=== PATIENT | female | born 1985 | race African-American/Black ===

== ENCOUNTER 2017-01-28 18:53 | Emergency (ER) | payer MEDICAID ==
[~2017-01-28] VITALS: Ht 167.6 cm; Wt 74.8 kg
[2017-01-28 21:55] VITALS: BP 138/99
== END 2017-01-28 22:06 | disposition home or self-care (01) ==
LOC: ER 19:03
DX: J11.1 Influenza due to unidentified influenza virus with other respiratory manifestations (principal); K21.9 Gastro-esophageal reflux disease without esophagitis

== ENCOUNTER 2018-02-08 10:40 | Emergency (ER) | payer MEDICAID ==
[~2018-02-08] VITALS: Ht 167.6 cm; Wt 74.8 kg
[2018-02-08] MEDS ORDERED: SODIUM CHLORIDE 0.9% 500 ML IV ONE (11:07)
[2018-02-08 11:12] LABS: Urine WBC None Seen /hpf (0 - 5)
[2018-02-08 11:31] LABS: Urine Amorphous Crystal FEW /hpf (None Seen); Urine Bacteria NONE SEEN /hpf (None Seen); Urine Blood 3+ /uL (Negative); Urine Specific Gravity 1.001 (1.001-1.035)
[2018-02-08 11:46] LABS: Basophils # (auto) 0.1 uL; Eosinophils # (auto) 0.2 uL; Eosinophils % (auto) 3.5 % (0.0-7.0); Hematocrit 43.8 % (36.0-46.0); Lymphocytes # (auto) 2.3 uL; Lymphocytes % (auto) 41.1 % (10.0-50.0); Mean Corpuscular Hemoglobin 30.9 pg (28.0-32.0); Mean Corpuscular Hgb Conc. 34.2 g/dL (32.0-36.0); Mean Corpuscular Volume 90.5 fL (80.0-100.0); Monocytes # (auto) 0.2 uL; Monocytes % (auto) 3.9 % (0.0-12.0); Neutrophils # (auto) 2.8 uL; Neutrophils % (auto) 50.5 % (37.0-80.0); Platelet Count (auto) 230 10^3/uL (140-450); Red Blood Cells 4.84 10^6/uL (4.0-5.20); Red Cell Distribution Width 12.1 % (11.8-14.3); White Blood Cell 5.5 10^3/uL (4.4-10.8)
[2018-02-08 11:58] LABS: Albumin 4.2 g/dL (3.4-5.0); Calcium 9.2 mg/dL (8.5-10.1); Potassium 3.5 mmol/L (3.5-5.1)
[2018-02-08 12:04] LABS: BUN/Creatinine Ratio 6.6; Bilirubin, Total 0.7 mg/dL (0.2-1.0); Total Protein 8.1 g/dL (6.4-8.2)
[2018-02-08 13:39] VITALS: BP 130/65
== END 2018-02-08 14:15 | disposition home or self-care (01) ==
LOC: ER 10:40
DX: N93.8 Other specified abnormal uterine and vaginal bleeding (principal); H53.8 Other visual disturbances; R42 Dizziness and giddiness; R06.02 Shortness of breath; K21.9 Gastro-esophageal reflux disease without esophagitis; Z91.013 Allergy to seafood; Z91.018 Allergy to other foods
CPT/HCPCS: 36415; 76830; 76856; 80053; 81001; 84702; 85025; 94761; 96360; 96361; 99285; J7040

== ENCOUNTER 2024-04-18 00:28 | Emergency (ER) | payer MEDICAID ==
[~2024-04-18] VITALS: Ht 167.6 cm; Wt 84.9 kg
[2024-04-18 02:11] VITALS: BP 118/71; PULSE 71; RESP 18; TEMP 98.3; O2SAT 98
[2024-04-18] MEDS ORDERED: AUG875T PO (02:15)
--- NOTE | 2024-04-18 02:15 | ED.PDOC ---
Eye-HPI HPI Comments This is a 38-year-old female patient presents ED chief complaint throat pain. Patient reports related symptoms of bilateral ear pain left eye redness and difficulty swallowing it is the pain. States was recently at an ENT appointment this past Monday states since has been sick. Denies difficulty breathing, chest pain, shortness of breath, vomiting, diarrhea or recent ill contacts. 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 History Family History Family History: No family hx of Cancer Social History Smoker: Non-Smoker Alcohol: Occasionally Drugs: Denies Drug Use Lives In: Home Constitutional: reports: fever; denies: chills, diaphoresis, fatigue, malaise, sweats, weakness, others EENTM: reports: eye redness, throat pain, throat swelling; denies: blurred vision, double vision, ear bleeding, ear discharge, ear drainage, ear pain, ear ringing, eye pain, hearing loss, mouth pain, mouth swelling, nasal discharge, nose bleeding, nose congestion, nose pain, photophobia, tearing, voice changes, others Respiratory: denies: cough, hemoptysis, orthopnea, SOB at rest, shortness of breath, SOB with excertion, stridor, wheezing, others Cardiovascular: denies: chest pain, dizzy spells, diaphoresis, Dyspnea on e xertion, edema, irregular heart beat, left arm pain, lightheadedness, palpitations, PND, syncope, others Gastrointestinal: denies: abdomen distended, abdominal pain, blood streaked bowels, constipated, diarrhea, dysphagia, difficulty swallowing, hematemesis, melena, nausea, poor appetite, poor fluid intake, rectal bleeding, rectal pain, vomiting, others Genitourinary: denies: abnormal vagina bleeding, burning, dyspareunia, dysuria, flank pain, frequency, hematuria, incontinence, pain, , vagina discharge, urgency, others Neurological: denies: dizziness, fainting, headache, left sided numbness, left sided weakness, numbness, paresthesia, pre-existing deficit, right sided numbness, right sided weakness, seizure, speech problems, tingling, tremors, weakness, others Musculoskeletal: denies: back pain, gout, joint pain, joint swelling, muscle pain, muscle stiffness, neck pain, others Integumetry: denies: bruises, change in color, change in hair/nails, dryness, laceration, lesions, lumps, rash, wounds, others Allergic/Immunocompromised: denies: Difficulty Healing, Frequent Infections, Hives, Itching, others Hematologic/Lymphatic: denies: anemia, blood clots, easy bleeding, easy bruising, swollen glands, others Endocrine: denies: excessive hunger, excessive sweating, excessive thirst, excessive urination, flushing, intolerance to cold, intolerance to heat, unexplained weight gain, unexplained weight loss, others Psychiatric: denies: anxiety, bipolar disorder, depression, hopeless, panic disorder, schizophrenia, sleepless, suicidal, others Physical Exam General Appearance: No Apparent Distress, Normal HEENT: Pharyngeal Erythema, TMs Normal Neck: Full Range of Motion, Non-Tender Respiratory: Lungs Clear, No Respiratory Distress, Normal Breath Sounds Cardiovascular: No Edema, No JVD, No Murmur, No Gallop, Normal Peripheral Puls es, Regular Rate/Rhythm Breast Exam: Deferred Gastrointestinal: No Organomegaly, Non Tender, No Pulsatile Mass, Normal Bowel Sounds, Soft Genitalia: Deferred Pelvic: Deferred Rectal: Deferred Extremities: Normal capillary refill, Normal inspection, Normal range of motion, Non-tender, No pedal edema Musculoskeletal : Apperance: Normal Neurologic: Alert, 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 Was a procedure done?: No EENT DIFF Eye: N/A Ear: Cerumen Impaction, Foreign Body, Otitis Externa, Otitis Media, Perforation Sore Throat: Peritonsillar Abscess, Peritonsillar Cellulitis, Streptococcal, Viral Pharyngitis X-Ray, Labs, Meds, VS Vital Signs Date Time Temp Pulse Resp B/P (MAP) Pulse Ox O2 Delivery O2 Flow Rate FiO2 04/18/24 02:11 71 18 98 Room Air 04/18/24 02:11 98.3 71 18 118/71 (87) 98 98.3 04/18/24 00:55 98.3 78 18 128/76 (93) 99 Current Medications Medications (Trade) Dose Ordered Sig/Juan M Route Start Time Stop Time Status Last Admin Acetaminophen/ Hydrocodone Bitart ([place] 5/325MG Tab) 1 tab ONCE ONCE PO 04/18/24 02:15 04/18/24 02:16 DC 04/18/24 02:16 X-Ray, Labs, Meds, VS Comment Likely bacterial we will start trial of Augmentin. Patient allergic to dexamethasone requesting something for the pain [place] 5 mg p.o. given. Advised to rest increase p.o. fluids with electrolytes. Follow up with your PCP within 2-3 days as necessary. [id number] Tylenol or Motrin as needed for pain or fever per labeled dosing instructions. We discussed ER return precautions patient indicated understanding and agrees with discharge care plan. Time of 1ST Reevaluation: 02:13 Reevaluation 1ST: Improved Patient Education/Counseling: Diagnosis, Treatment, Prognosis, Need For Follow Up Family Education/Counseling: Diagnosis, Treatment, Prognosis, Need For Follow Up Departure 1 Departure Time of Disposition: 02:13 Impression: Primary Impression: Respiratory infection, upper Qualified Codes: J06.9 - Acute upper respiratory infection, unspecified Disposition: 01 HOME / SELF CARE / HOMELESS Condition: Stable e-Prescriptions Amoxicillin & Pot Clavulanate (AUGMENTIN TABLET) 875 Mg Tb 1 TAB PO BID for 7 Days, #14 TAB Prov: VIKI RIVERA 04/18/24 Discharged With: Significant Other Critical Care Note Critical Care Time?: No Stability Stability form required: No VIKI RIVERA Apr 18, 2024 02:15
[2024-04-18] MEDS: HYDROcodone-ACET 5/325MG TAB PO ONE (02:16)
== END 2024-04-18 02:22 | disposition home or self-care (01) ==
LOC: ER 00:28
DX: J06.9 Acute upper respiratory infection, unspecified (principal); K21.9 Gastro-esophageal reflux disease without esophagitis; H92.03 Otalgia, bilateral; Z98.890 Other specified postprocedural states; Z79.899 Other long term (current) drug therapy; Z91.013 Allergy to seafood; Z91.018 Allergy to other foods

== ENCOUNTER 2025-03-27 14:27 | Emergency (ER) | payer MEDICAID ==
[~2025-03-27] VITALS: Ht 167.6 cm; Wt 74.0 kg
--- NOTE | 2025-03-27 15:03 | ED.PDOC ---
General HPI Comments 39 y/o F, presents to the ED for CC of pelvic pain. Patient states, she has been experiencing symptoms of pelvic pain [id number] with associated irregular menstrual cycles x3-4 months. Patient relays, to have FHx of cervical cancer and expresses concern over being un-screened. Patient further relays, symptoms of unexplained weight loss. Patient denies nausea, vomiting, dizziness, fatigue, or weakness. No other symptoms or modifying factors are present at this time. 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 DOUGHNUT MACHINE OPERATOR HELPER History Family History Family History: No family hx of Cancer Social History Smoker: Non-Smoker Alcohol: Occasionally Drugs: Denies Drug Use Lives In: Home Constitutional: denies: chills, diaphoresis, fatigue, fever, malaise, sweats, weakness, others EENTM: denies: blurred vision, double vision, ear bleeding, ear discharge, ear drainage, ear pain, ear ringing, eye pain, eye redness, hearing loss, mouth pain, mouth swelling, nasal discharge, nose bleeding, nose congestion, nose pain, photophobia, tearing, throat pain, throat swelling, voice changes, others Respiratory: denies: cough, hemoptysis, orthopnea, SOB at rest, shortness of breath, SOB with excertion, stridor, wheezing, others Cardiovascular: denies: chest pain, dizzy spells, diaphoresis, Dyspnea on exertion, edema, irregular heart beat, left arm pain, lightheadedness, palpi tations, PND, syncope, others Gastrointestinal: denies: abdomen distended, abdominal pain, blood streaked bowels, constipated, diarrhea, dysphagia, difficulty swallowing, hematemesis, melena, nausea, poor appetite, poor fluid intake, rectal bleeding, rectal pain, vomiting, others Genitourinary: reports: others (pelvic pain); denies: abnormal vagina bleeding, burning, dyspareunia, dysuria, flank pain, frequency, hematuria, incontinence, pain, , vagina discharge, urgency Neurological: denies: dizziness, fainting, headache, left sided numbness, left sided weakness, numbness, paresthesia, pre-existing deficit, right sided numbness, right sided weakness, seizure, speech problems, tingling, tremors, weakness, others Musculoskeletal: denies: back pain, gout, joint pain, joint swelling, muscle pain, muscle stiffness, neck pain, others Integumetry: denies: bruises, change in color, change in hair/nails, dryness, laceration, lesions, lumps, rash, wounds, others Allergic/Immunocompromised: denies: Difficulty Healing, Frequent Infections, Hives, Itching, others Hematologic/Lymphatic: denies: anemia, blood clots, easy bleeding, easy bruising, swollen glands, others Endocrine: denies: excessive hunger, excessive sweating, excessive thirst, excessive urination, flushing, intolerance to cold, intolerance to heat, unexplained weight gain, unexplained weight loss, others Psychiatric: denies: anxiety, bipolar disorder, depression, hopeless, panic disorder, schizophrenia, sleepless, suicidal, others All Other Systems: Reviewed and Negative Physical Exam General Appearance: No Apparent Distress, Normal HEENT: Normal ENT Inspection, Pharynx Normal Neck: Full Range of Motion, Non-Tender, Normal, Normal Inspection Respiratory: Chest Non-Tender, Lungs Clear, No Accessory Muscle Use, No Respiratory Distress, Normal Breath Sounds Cardiovascular: No Edema, No Murmur, No Gallop, Normal Peripheral Pulses, Regular Rate/Rhythm Breast Exam: Deferred Gastrointestinal: No Organomegaly, Non Tender, No Pulsatile Mass, Normal Bowel Sounds, Soft Genitalia: Deferred Pelvic: Deferred Rectal: Deferred Extremities: No calf tenderness, Normal capillary refill, Normal inspection, Normal range of motion, Non-tender, No pedal edema Musculoskeletal : Apperance: Normal Neurologic: Alert, 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 Was a procedure done?: No Differential Diagnosis Kidney stone (Female): N/A Kidney stone (Male): N/A Urinary Problem (Female): PID, UTI, Vaginitis X-Ray, Labs, Meds, VS Vital Signs Date Time Temp Pulse Resp B/P (MAP) Pulse Ox O2 Delivery O2 Flow Rate FiO2 03/27/25 14:28 98.2 76 16 145/97 99 98.2 Lab Test 03/27/25 15:01 03/27/25 14:43 Range/Units White Blood Count 6.3 4.4-10.8 10^3/uL Red Blood Count 4.50 4.0-5.20 10^6/uL Hemoglobin 12.9 12.2-16.2 g/dL Hematocrit 39.4 36.0-46.0 % Mean Corpuscular Volume 87.5 80.0-100.0 fL Mean Corpuscular Hemoglobin 28.8 28.0-32.0 pg Mean Corpuscular Hemoglobin Concent 32.9 32.0-36.0 g/dL Red Cell Distribution Width 16.6 H 11.8-14.3 % Platelet Count 310 140-450 10^3/uL Mean Platelet Volume 8.0 6.9-10.8 fL Neutrophils (%) (Auto) 54.5 37.0-80.0 % Lymphocytes (%) (Auto) 37.1 10.0-50.0 % Monocytes (%) (Auto) 6.1 0.0-12.0 % Eosinophils (%) (Auto) 1.7 0.0-7.0 % Basophils (%) (Auto) 0.6 0.0-2.0 % Neutrophils # (Auto) 3.4 1.6-8.6 10 ^3/uL Lymphocytes # (Auto) 2.3 0.4-5.4 10 ^3/uL Monocytes # (Auto) 0.4 0-1.3 10 ^3/uL Eosinophils # (Auto) 0.1 0-0.8 10 ^3/uL Basophils # (Auto) 0 0-0.2 10 ^3/uL Nucleated Red Blood Cells 0.1 % Sodium Level 144 136-145 mmol/L Potassium Level 4.6 3.5-5.1 mmol/L Chloride Level 107 98-107 mmol/L Carbon Dioxide Level 28 20-31 mmol/L Anion Gap 9 5-15 Blood Urea Nitrogen 5 L 9-23 mg/dL Creatinine 0.81 0.550-1.02 mg/dL Glomerular Filtration Rate Calc 96 >90 mL/min BUN/Creatinine Ratio 6.2 L 10.0-20.0 Serum Glucose 88 74-106 mg/dL Calcium Level 9.6 8.7-10.4 mg/dL Urine Color Colorless Yellow Urine Clarity Clear Clear Urine pH 7.0 5.0-9.0 Urine Specific Emery 1.002 1.001-1.035 Urine Protein Negative Negative Urine Ketones Negative Negative Urine Blood Negative Negative /uL Urine Nitrite Negative Negative Urine Bilirubin Negative Negative Urine Urobilinogen Normal Negative mg/dL Urine Leukocyte Esterase Negative Negative /uL Urine RBC <1 0 - 4 /hpf Urine Microscopic WBC < 1 0-5 /HPF Urine Squamous Epithelial Cells Few <5 /hpf Urine Bacteria Few H None Seen /hpf Urine Glucose Normal Normal mg/dL Urine Test Negative Negative Time of 1ST Reevaluation: 15:10 Reevaluation 1ST: Unchanged Patient Education/Counseling: Diagnosis, Treatment Family Education/Counseling: No Family Present Additional Information IDEAL BODY WEIGHT: 1st: Refer to [employer] 2nd: 59.3kg x 30mL/kg= 1779mL SEPSIS Sepsis Screen Date sepsis recognized/suspect: Mar 27, 2025 Time Sepsis recognized/suspect: 1431 Recent Procedure: No On Antibiotic Therapy: No Respiratory Rate >20: No Heart Rate >90: No Temp<36 C (96.8 F) or >38.3 C: No SBP <90 or MAP <65 mmHG: No New Acute Mental Status Change: No Is the patient on CPAP, BIPAP,: No Physician Orders Pelvic (03/27/25 17:08) Transvaginal Us Non Ob (03/27/25 ) Vital Signs Date Time Temp Pulse Resp B/P (MAP) Pulse Ox O2 Delivery O2 Flow Rate FiO2 03/27/25 14:28 98.2 76 16 145/97 99 98.2 Laboratory Tests Test 03/27/25 15:01 White Blood Count 6.3 10^3/uL (4.4-10.8) Departure 1 Departure Time of Disposition: 18:34 (Patient presented with abdominal pain that was concerning for possible appendicits, gastritis, cholecystitis, colitis, gastroenteritis, or orther possible surgical emergency. Data: 1. I ordered and reviewed the result of at least 3 labs including a CBC, BMP, and Urinalysis. 2. I independently interpreted the following tests: Ultrasound of the pelvis shows a hemorrhagic cyst .Risk:This patient has a high risk of morbidity due to further diagnostic testing or treatment and may suffer from an acute abdominal process disorder. Fortunately workup reveals a hemorrhagic cyst and patient can be safely discharged to home with outpatient follow up.) Impression: Primary Impression: Hemorrhagic cyst of left ovary Disposition: HOME / SELF CARE / HOMELESS Condition: Stable Additional Instructions: Your workup today shows a hemorrhagic cyst of your left ovary. This is likely what is causing your pain. Your labs are otherwise benign. It is important to follow up with OBGYN next week. You were referred to OB/ Please call for an appointment. For pain you can take the followinam: Ibuprofen 400mg with food Noon: Acetaminophen 1000mg 4pm: Ibuprofen 400mg with food 8pm: Acetaminophen 1000mg You should follow up with your regular doctor within one week to ensure you are doing better. If your symptoms worsen or you have any other concerns then please return to the ER. Discharged With: Self Critical Care Note Critical Care Time?: No Stability Stability form required: No Heart Score Heart Score: Heart Score Response (Comments) Value History N/A 0 EKG N/A 0 Age N/A 0 Risk Factors N/A 0 Troponin N/A 0 Total 0 I personally scribed for AKIL COBB MD ([email or web address]) on 03/27/25 at 15:03. Electronically submitted by Juliane Calle ([email or web address]). I personally scribed for AKIL COBB MD ([email or web address]) on 03/27/25 at 15:14. Electronically submitted by Juliane Calle ([email or web address]). AKIL COBB MD Mar 27, 2025 15:03
[2025-03-27 15:11] LABS: Urine Protein, UAD Negative (Negative)
[2025-03-27 15:14] LABS: Hematocrit 39.4 % (36.0-46.0); Hemoglobin 12.9 g/dL (12.2-16.2); Mean Corpuscular Hemoglobin 28.8 pg (28.0-32.0); Mean Corpuscular Volume 87.5 fL (80.0-100.0); Nucleated Red Blood Cells % 0.1 %
[2025-03-27 15:20] LABS: Potassium 4.6 mmol/L (3.5-5.1); Sodium 144 mmol/L (136-145)
[2025-03-27 15:21] LABS: Anion Gap 9 (5-15); Calcium 9.6 mg/dL (8.7-10.4); Carbon Dioxide 28 mmol/L (20-31)
[2025-03-27 15:26] LABS: BUN/Creatinine Ratio 6.2 (10.0-20.0); Glucose 88 mg/dL (74-106)
[2025-03-27 15:27] LABS: Blood Urea Nitrogen 5 mg/dL (9-23); Chloride 107 mmol/L (98-107)
--- NOTE | 2025-03-27 18:19 | DVH ---
ULTRASOUND OF THE PELVIS (NON-OB) FEMALE INDICATION: pelvic pain X3 weeks. History of recent UTI. LMP 03/06/2025. . History of tubal ligation. COMPARISON: None TECHNIQUE AND FINDINGS: Transabdominal Ultrasound: Transabdominal ultrasound examination was performed. Endovaginal Ultrasound: Endovaginal ultrasound was performed for improved visualization of pelvic structures. UTERUS: The uterus is retroverted and measures 9.1 x 4.6 x 5.7 cm. The endometrial stripe is 17 mm in thickness, within normal limits. There is a tiny elongated focus of fluid within the endometrial stripe at the fundus measuring 0.6 x 0.9 x 0.2 cm. RIGHT OVARY: The right ovary measures 3.2 x 3.8 x 1.5 cm. The right ovary demonstrates expected Doppler flow. There is no evidence of abnormal adnexal mass. LEFT OVARY: The left ovary measures 6.0 x 5.6 x 5.2 cm. The left ovary demonstrates expected Doppler flow. There is a 4.8 x 3.2 x 4.2 cm complex cystic structure within the left ovary with a reticular appearance. CUL de SAC: There is trace free fluid in the pelvis. IMPRESSION: Left ovarian hemorrhagic cyst. The right ovary appears unremarkable. Trace fluid within the endometrial stripe at the fundus. Recommend urine test to rule out gestational sac. COMMENT: Both transabdominal ultrasound and endovaginal ultrasound were performed; the above impression reflects the composite impression from these two studies. No additional comment.
[2025-03-27 19:20] VITALS: BP 145/95; PULSE 68; RESP 16; TEMP 97.7; O2SAT 100
== END 2025-03-27 19:27 | disposition home or self-care (01) ==
LOC: ER 14:27
DX: N83.202 Unspecified ovarian cyst, left side (principal); R10.20 Pelvic and perineal pain unspecified side; Z98.51 Tubal ligation status; Z91.018 Allergy to other foods; Z88.8 Allergy status to other drugs, medicaments and biological substances; Z79.899 Other long term (current) drug therapy
CPT/HCPCS: 36415; 76830; 76856; 80048; 81001; 81025; 85025